=== PATIENT | male | born 1995 | race Caucasian/White ===

== ENCOUNTER 2019-04-03 07:10 | Emergency (ER) | payer BC, OTHER ==
[~2019-04-03] VITALS: Ht 182.9 cm; Wt 90.9 kg
[~2019-04-03 07:10] MED LIST: METO-292 PO; PROM25TA14 PEG
[2019-04-03] MEDS ORDERED: HYDROcodone/acetaminophen 10/325mg tab PO ONE (07:15)
[2019-04-03] MEDS ORDERED: orphenadrine citrate 60mg/2ml inj. IM ONE (07:15)
[2019-04-03] MEDS ORDERED: diazepam 5mg tablet PO ONE (07:40)
[2019-04-03] MEDS ORDERED: HYDR-4353 PO (09:49)
[2019-04-03] MEDS ORDERED: DIAZ10TA PO (09:49)
[2019-04-03 10:02] VITALS: BP 118/69
== END 2019-04-03 10:08 | disposition home or self-care (01) ==
LOC: ER 07:10
DX: S39.012A Strain of muscle, fascia and tendon of lower back, initial encounter (principal); M62.830 Muscle spasm of back; F12.90 Cannabis use, unspecified, uncomplicated; X50.1XXA Overexertion from prolonged static or awkward postures, initial encounter; Y93.64 Activity, baseball; Y92.89 Other specified places as the place of occurrence of the external cause; Y99.9 Unspecified external cause status
CPT/HCPCS: 96372; 99283; J2360

== ENCOUNTER 2020-03-17 09:55 | Emergency (ER) | payer BC, OTHER ==
[~2020-03-17] VITALS: Ht 180.3 cm; Wt 90.0 kg
[~2020-03-17 09:55] MED LIST changes: +DIAZ10TA PO
[2020-03-17] MEDS ORDERED: normal saline 1000ML IV soln IVB ONE (10:45)
[2020-03-17] MEDS ORDERED: famotidine/PF 10 mg/ml inj IV ONE (10:45)
[2020-03-17] MEDS ORDERED: ondansetron/PF 4mg/2ml inj IV ONE ×2 (10:45→12:50)
[2020-03-17 10:58] LABS: BASOPHILS # (AUTO) 0.1 X10'3 (0-0.2); BASOPHILS % (AUTO) 0.4 % (0-1); EOSINOPHILS % (AUTO) 0 % (0-6); HEMATOCRIT 44.4 % (42.0-52.0); HEMOGLOBIN 14.8 g/dl (14.0-17.9); LYMPHOCYTES % (AUTO) 13.9 % (21-51); MEAN CORPUSCULAR HEMOGLOBIN 30.5 PG (27.0-31.0); MEAN CORPUSCULAR HGB CONC 33.2 g/dL (33.0-36.5); MEAN CORPUSCULAR VOLUME 91.8 FL (78-98); MEAN PLATELET VOLUME 9.9 FL (7.4-10.4); MONOCYTES # (AUTO) 0.8 X10'3 (0-0.9); MONOCYTES % (AUTO) 5.8 % (2-12); NEUTROPHILS # (AUTO) 11.4 X10'3 (1.8-7.7); NEUTROPHILS % (AUTO) 79.9 % (42-75); PLATELET COUNT 223 X10'3 (140-440); RED BLOOD COUNT 4.84 X10'6 (4.70-6.10); RED CELL DISTRIBUTION WIDTH 13.2 % (11.5-14.5); WHITE BLOOD COUNT 14.3 X10'3 (4.5-11.0)
[2020-03-17 11:04] LABS: CLARITY,URINE CLOUDY (Clear); COLOR,URINE YELLOW (Yellow); GLUCOSE, URINE NEGATIVE (Neg); KETONES,URINE >=80 mg/dl (Neg); LEUKOCYTE ESTERASE ,URINE NEGATIVE (Neg); NITRITES, URINE NEGATIVE (Neg); OCCULT BLOOD,URINE NEGATIVE (Neg); PROTEIN,URINE TRACE mg/dl (Neg); UROBILINOGEN,URINE 0.2 E.U/dL (0.2-1.0)
[2020-03-17 11:06] LABS: UA COLLECTION TYPE CLN CATCH MIDSTREAM
[2020-03-17 11:09] LABS: RBC,URINE NONE SEEN /HPF (0-2)
[2020-03-17 11:10] LABS: BACTERIA,URINE NONE SEEN /HPF (Neg); FINE GRANULAR CAST 0-3 /LPF (NEGATIVE); HYALINE CASTS 0-3 /LPF (NEGATIVE); MUCUS STRANDS MODERATE /LPF (Neg); SQUAMOUS EPITHELIAL CELL,UR FEW /LPF (FEW)
[2020-03-17 11:13] LABS: ALANINE AMINOTRANSFERASE 15 U/L (12-78); ALBUMIN 4.9 G/DL (3.4-5.0); ALBUMIN/GLOBULIN RATIO 1.5 (1.1-1.5); ALKALINE PHOSPHATASE 68 IU/L (46-116); ANION GAP 9 (8-16); ASPARTATE AMINO TRANSFERASE 15 U/L (10-37); BLOOD UREA NITROGEN 17 MG/DL (7-18); BUN/CREATININE RATIO 16.8 (5.4-32.0); CALCIUM 9.9 MG/DL (8.5-10.1); CHLORIDE 98 MMOL/L (99-107); CREATININE 1.01 MG/DL (0.60-1.10); GLUCOSE 95 MG/DL (70-104); LIPASE 78 U/L (73-393); POTASSIUM 3.6 MMOL/L (3.5-5.1); SODIUM 137 MMOL/L (135-145); TOTAL CARBON DIOXIDE 29.8 MMOL/L (24-32); TOTAL PROTEIN 8.2 G/DL (6.4-8.2); eGFR > 90 ML/MIN
[2020-03-17] MEDS ORDERED: iohexol 300mg/ml 100ml inj. ONE (11:47)
[2020-03-17] MEDS ORDERED: PANT-47 PO (12:28)
[2020-03-17 13:28] VITALS: BP 141/78
== END 2020-03-17 13:25 | disposition home or self-care (01) ==
LOC: ER 09:55
DX: K29.00 Acute gastritis without bleeding (principal); R11.2 Nausea with vomiting, unspecified; F41.9 Anxiety disorder, unspecified; F12.90 Cannabis use, unspecified, uncomplicated; Z79.899 Other long term (current) drug therapy
CPT/HCPCS: 36415; 74177; 80053; 81001; 83690; 85025; 87088; 96361; 96374; 96375; 96376; 99285; J2405; J3490; J7030; Q9967; 99284

== ENCOUNTER 2022-06-16 16:01 | Emergency (ER) | payer BC ==
[~2022-06-16] VITALS: Ht 180.3 cm; Wt 107.7 kg
[~2022-06-16 16:01] MED LIST changes: +PANT-47 PO
[2022-06-16 16:38] LABS: BASOPHILS # (AUTO) 0.3 X10'3 (0-0.2); BASOPHILS % (AUTO) 1.9 % (0-1); EOSINOPHILS # (AUTO) 0.1 X10'3 (0-0.9); EOSINOPHILS % (AUTO) 0.3 % (0-6); HEMATOCRIT 43.2 % (42.0-52.0); HEMOGLOBIN 14.9 g/dl (14.0-17.9); LYMPHOCYTES # (AUTO) 1.8 X10'3 (1.1-4.8); LYMPHOCYTES % (AUTO) 12.4 % (21-51); MEAN CORPUSCULAR HEMOGLOBIN 30.6 PG (27.0-31.0); MEAN CORPUSCULAR HGB CONC 34.4 g/dL (33.0-36.5); MEAN CORPUSCULAR VOLUME 88.7 FL (78-98); MEAN PLATELET VOLUME 9.6 FL (7.4-10.4); MONOCYTES # (AUTO) 1.1 X10'3 (0-0.9); MONOCYTES % (AUTO) 7.8 % (2-12); NEUTROPHILS # (AUTO) 11.3 X10'3 (1.8-7.7); NEUTROPHILS % (AUTO) 77.6 % (42-75); PLATELET COUNT 282 X10'3 (140-440); RED BLOOD COUNT 4.87 X10'6 (4.70-6.10); WHITE BLOOD COUNT 14.5 X10'3 (4.5-11.0)
[2022-06-16 16:41] LABS: ALANINE AMINOTRANSFERASE 26 U/L (12-78); ALBUMIN 4.6 G/DL (3.4-5.0); ALBUMIN/GLOBULIN RATIO 1.3 (1.1-1.5); ALKALINE PHOSPHATASE 79 IU/L (46-116); ANION GAP 19 (8-16); ASPARTATE AMINO TRANSFERASE 19 U/L (10-37); BILIRUBIN,TOTAL 1.4 MG/DL (0.1-1.0); BLOOD UREA NITROGEN 17 MG/DL (7-18); BUN/CREATININE RATIO 16.5 (5.4-32.0); CALCIUM 9.1 MG/DL (8.5-10.1); CHLORIDE 88 MMOL/L (99-107); CREATININE 1.03 MG/DL (0.60-1.10); GLUCOSE 103 MG/DL (70-104); LIPASE 87 U/L (73-393); SODIUM 133 MMOL/L (135-145); TOTAL CARBON DIOXIDE 26.3 MMOL/L (24-32); TOTAL PROTEIN 8.2 G/DL (6.4-8.2); eGFR 88 ML/MIN
[2022-06-16 16:44] LABS: POTASSIUM 2.6 MMOL/L (3.5-5.1)
[2022-06-16] MEDS ORDERED: haloperidol lactate 5mg/ml inj IM ONE (17:00)
[2022-06-16] MEDS ORDERED: potassium Cl 10 mEq/100mL bag IV ONE (17:00)
[2022-06-16] MEDS ORDERED: proCHLORperazine 10 MG/2 ml inj IV ONE (17:00)
[2022-06-16] MEDS ORDERED: potassium chloride 10mEq ER tablet PO STA ×2 (17:00→19:00)
[2022-06-16] MEDS ORDERED: diphenhydrAMINE 50 mg/ml inj IV ONE (17:00)
[2022-06-16] MEDS ORDERED: normal saline 1000ML IV soln IVB ONE (17:00)
[2022-06-16] MEDS ORDERED: POTA-82 PO (19:00)
[2022-06-16] MEDS ORDERED: potassium Cl 20 mEq SR tablet PO STA (19:00)
[2022-06-16 19:43] LABS: CLARITY,URINE CLEAR (Clear); COLOR,URINE YELLOW (Yellow); GLUCOSE, URINE NEGATIVE (Neg); KETONES,URINE >=80 mg/dl (Neg); LEUKOCYTE ESTERASE ,URINE NEGATIVE (Neg); NITRITES, URINE NEGATIVE (Neg); OCCULT BLOOD,URINE NEGATIVE (Neg); PH,URINE 5.5 (4.8-8.0); PROTEIN,URINE NEGATIVE (Neg); UROBILINOGEN,URINE 0.2 E.U/dL (0.2-1.0)
[2022-06-16 19:45] LABS: UA COLLECTION TYPE VOIDED
[2022-06-16 19:59] VITALS: BP 146/85
== END 2022-06-16 20:00 | disposition home or self-care (01) ==
LOC: ER 16:02
DX: R11.15 Cyclical vomiting syndrome unrelated to migraine (principal); E87.6 Hypokalemia; R10.13 Epigastric pain; F15.10 Other stimulant abuse, uncomplicated; F12.10 Cannabis abuse, uncomplicated; F41.9 Anxiety disorder, unspecified; Z79.899 Other long term (current) drug therapy
CPT/HCPCS: 36415; 80053; 81003; 83690; 85025; 93005; 96361; 96372; 96374; 96375; 99284; J0780; J1200; J1630; J3480; J7030